=== PATIENT | male | born 1995 ===

== ENCOUNTER 2020-08-27 06:13 | Day surgery (SDC) | payer OTHER ==
[2020-08-27] MEDS ORDERED: COLACE100 MG PO (10:38)
[2020-08-27] MEDS ORDERED: NEURONTIN600 M1 PO (10:38)
[2020-08-27] MEDS ORDERED: PERCOCET 5-3251 EACH PO (10:38)
== END 2020-08-27 12:55 | disposition home or self-care (01) ==
LOC: CIR.AMB 06:13
PROVIDERS: ATTEND Surgery
DX: K42.0 Umbilical hernia with obstruction, without gangrene (principal); Z20.828 Contact with and (suspected) exposure to other viral communicable diseases